=== PATIENT | female | born 1960 | race Caucasian/White ===

== ENCOUNTER 2018-09-28 14:40 | Inpatient (IN) | payer MEDICAID ==
[~2018-09-28] VITALS: Ht 162.6 cm; Wt 80.0 kg
[2018-09-28 14:49] VITALS: Ht 162.6 cm; Wt 80.0 kg
--- NOTE | 2018-09-28 16:16 | NUR ---
MSE COMPLETED BY DR CASTANO
--- NOTE | 2018-09-28 16:20 | NUR ---
PT HERE FOR C/O RUQ ABD PAIN RADIATING TO R SIDE BACK AND CHEST WALL PAIN FOR 1 DAY. PT STS THIS MORNING SHE WOKE UP WITH DROOPING TO R SIDE OF FACE. PT STS SHE STILL HAS SLIGHT DROOPING AT THIS TIME ALTHOUGH WITH SMILE AND RAISING EYEBROWS HER FACE APPEARS SYMMETRIC.
--- NOTE | 2018-09-28 16:42 | NUR ---
LAB AT BEDSIDE
--- NOTE | 2018-09-28 16:44 | NUR ---
PT REPORTS FEELING DIZZY. REMAINS ON FULL MONITORS. NSR AT 64. PT INFORMED DIZZINESS IS A SIDE EFFECT OF NITRO TAB. HELD 3RD TABLET AT THIS TIME. STS 0/10 CP AT THIS TIME
[2018-09-28 17:04] LABS: BASOPHIL % 0.6 % (0-2); PLATELET COUNT 235 x10^3mcL (130-400); RED CELL DISTRIBUTION WIDTH 13.6 % (11.5-14.5)
[2018-09-28 17:05] LABS: CALCIUM 8.5 mg/dL (8.5-10.1); CARBON DIOXIDE 27.3 mmol/L (21-32); CHLORIDE SERUM 105 mmol/L (98-107); CREATININE SERUM 0.7 mg/dL (0.6-1.0); GFR1 > 60 mL/min; GLUCOSE SERUM 76 mg/dL (74-106); POTASSIUM SERUM 3.5 mmol/L (3.5-5.1); SODIUM SERUM 142 mmol/L (136-145)
[2018-09-28 17:11] LABS: UA SPECIFIC GRAVITY 1.015 (1.005-1.035); microscopic required? YES; urine erythrocyte TRACE (NEGATIVE)
[2018-09-28 17:13] LABS: ALBUMIN 3.7 g/dL (3.4-5.0); ALKALINE PHOSPHATASE 65 U/L (46-116); ALT/SGPT 24 U/L (14-59); AST/SGOT 16 U/L (15-37); BILIRUBIN TOTAL 0.3 mg/dL (0.20-1.00); CHOLESTEROL 170 mg/dL (<200); HDL CHOLESTEROL 49 mg/dL (40-60); LIPASE 168 IU/L (73-393); TOTAL PROTEIN, SERUM 7.3 g/dL (6.4-8.2)
[2018-09-28 17:27] LABS: AMPHETAMINE QUAL UR NONE DETECTED (See below)
--- NOTE | 2018-09-28 18:12 | NUR ---
PT REQUESTING PAIN FOR R SIDE BACK PAIN
--- NOTE | 2018-09-28 18:24 | NUR ---
DR CASTANO AWARE PT REQUESTING PAIN MED. TORADOL 15MG IVP VERBAL ORDER GIVEN
--- NOTE | 2018-09-28 18:36 | NUR ---
DR CASTANO SPOKE WITH PT REGARDING TEST RESULTS AND POC
--- NOTE | 2018-09-28 19:20 | NUR ---
REPORT GIVEN TO LULA
--- NOTE | 2018-09-28 19:36 | NUR ---
ABOVE NOTE DONE BY MT PRIDE.
[2018-09-28 20:04] LABS: MAGNESIUM 2.4 mg/dL (1.8-2.4); PHOSPHOROUS 3.2 mg/dL (2.5-4.9)
[2018-09-28 20:12] VITALS: BP 111/66
--- NOTE | 2018-09-28 20:24 | NUR ---
RECEIVED PT FROM ER, PT ADMIT FOR CHEST PAIN, PT IS A/O X4, VERBAL RESPONSIVE, ABLE TO TELL WHAT SHE NEEDS. LUNG SOUND CLEAR BILATERAL, NO COUGH, NO SOB, PT IS ON TELE 6, NSR, C/O CHEST PAIN AT MID, STAB PAIN AND RADIATE TO BACK, 8/10, BOWEL SOUND PRESENT ALL 4 QUADRANTS, NO DISTENTION, NO TENDER. PEDAL PULSE PRESENT BOTH FEET, NO EDEMA, IV AT RIGHT HAND, NO LEAKING, NO INFILTRAITON. ALL ADLS ASSIST, ALL NEED MET, CALL LIGHT IN REACH, WILL CONTINUE TO MONITOR.
--- NOTE | 2018-09-29 05:06 | NUR ---
DR. MAJOR MADE AWARE VIA [facility] OF [facility]: TRACE LEUKS AND FEW BACTERIA
[2018-09-29 05:28] VITALS: BP 100/55
--- NOTE | 2018-09-29 05:30 | NUR ---
PATIENT ALLERGY TO CODEINE, WAS GIVEN NORCO 7.5MG/325MG PO NO ADVERSE REATION NOTED. DR HURTADO WAS PAGED REGARDING THIS MATTER BUT NO RETURN CALL.
--- NOTE | 2018-09-29 05:32 | NUR ---
[facility] SHOWS TRACED LEUKCYTE EASTERASE WITH FEW BACTERIA, DR HURTADO WAS PAGED AWAITNG FOR RETURN CALL.
--- NOTE | 2018-09-29 06:22 | NUR ---
DR ANDREWS DID NOT RETURN THE CALL. PAGE [facility] X2 , WAITING FOR NEW ORDERS,
[2018-09-29 09:04] VITALS: BP 92/73
[2018-09-29 13:16] VITALS: BP 110/69
[2018-09-29 13:24] VITALS: BP 102/68
--- NOTE | 2018-09-29 15:03 | NUR ---
Discount pharmacy card and list to low cost medical clinics given to patient by Ngozi Walker.
[2018-09-29 17:01] VITALS: BP 125/71
--- NOTE | 2018-09-29 17:30 | NUR ---
DR HANNAH WAS AT BEDSIDE. NEW ORDERS RECEIVED. PATIENT TRANSFERRED TO M/S, TELE BOX RETURNED TO TECH STATION. KPAD ORDERED FOR BACK PROVIDED. [place] ALSO REQUESTED FOR BACK PAIN RADIATING TO RT SIDE CHEST, GIVEN. RECEIVED NEW ORDER FOR [facility] TO START TONIGHT. NO OTHER SIGNFICANT CHANGE IN CONDITION. WILL CONT TO MONITOR AND ENDORSE TO NOC NURSE.
--- NOTE | 2018-09-29 19:33 | NUR ---
SHIFT REASSESSMENT DONE.PATIENT ALERT AND ORIENTED.IN BED RESTING,BREATHING EASY.AMBULATORY RESTROOM,MEDSURG PATIENT NOW.HEPLOCK R HAND,ROCEPHITrav ATB ORDER TODAY.SKIN INTACT.HAS HEATING PAD/BACK PAIN.MOTRIN NEW ORDER.HAD NORCO EARLIER.CALL LIGHT IN REACH.
[2018-09-29 21:05] VITALS: BP 133/65
--- NOTE | 2018-09-29 21:10 | NUR ---
PATIENT ATB INITIATED WTH NO INCIDENT.HEPLOCK INTACT/SECURED.CALL LIGHT IN [facility],GIVEN TYLENOL EARLIER,DID NOT WANT NORCO AT THIS TIME.
--- NOTE | 2018-09-30 01:34 | NUR ---
PATIENT SLEEPING AFTER NORCO GIVEN,SWALLOWS WELL.WILL SENT [facility] CULTURE.
--- NOTE | 2018-09-30 01:40 | NUR ---
PATIENT NEED A [facility] CULTURE.PATIENT MADE AWARE.
--- NOTE | 2018-09-30 03:43 | NUR ---
URINE CULTURE SENT TO THE LAB.PATIENT DO NOT WANT TO USE K PAD ON HER BACK ANYMORE.
--- NOTE | 2018-09-30 06:08 | NUR ---
PATIENT DOING HER AM CARE.NO INCIDENT.PATIENT STILL DO NOT WANT HEATING PAD/BACK.SAYS SHE USED IT ALREADY ALL DAY YESTERDAY.[facility]AR REQUESTED AND GIVEN,AM LAB WORKS DONE.CALL LIGHT IN [place].WILL ENDORSE TO NEXT SHIFT.
[2018-09-30 07:10] LABS: BASOPHIL % 0.7 % (0-2); PLATELET COUNT 228 x10^3mcL (130-400); RED CELL DISTRIBUTION WIDTH 13.8 % (11.5-14.5)
--- NOTE | 2018-09-30 07:20 | NUR ---
RECEIVED PT IN NO ACUTE DISTRESS. AAOX4. RESP EVEN AND UNLABORED ON RA. NO C/O CP OR PRESSURE. REPORTS BACK PAIN /, TOLERABLE. REFUSED K-PAD AT THIS TIME. IV TO R HAND, NO REDNESS OR SWELLING TO IV SITE. BED IN LOW POSITION, CALL LIGHT WITHIN REACH. WILL CONTINUE TO MONITOR.
[2018-09-30 07:34] LABS: CALCIUM 8.4 mg/dL (8.5-10.1); CARBON DIOXIDE 28.5 mmol/L (21-32); CHLORIDE SERUM 104 mmol/L (98-107); CREATININE SERUM 0.8 mg/dL (0.6-1.0); GFR1 > 60 mL/min; GLUCOSE SERUM 86 mg/dL (74-106); MAGNESIUM 2.3 mg/dL (1.8-2.4); PHOSPHOROUS 5.1 mg/dL (2.5-4.9); POTASSIUM SERUM 3.6 mmol/L (3.5-5.1); SODIUM SERUM 142 mmol/L (136-145)
[2018-09-30 08:06] VITALS: BP 116/75
--- NOTE | 2018-09-30 12:02 | NUR ---
PT IN NO ACUTE DISTRESS. SLEEPING BUT EASILY AROUSABLE. BREATHING EVEN AND UNLABORED ON RA. NO PAIN NOTED. HOB ELEVATED. IV TO R HAND, NO REDNESS OR SWELLING. CALL LIGHT WITHIN REACH. WILL CONTINUE TO MONITOR.
[2018-09-30 13:46] VITALS: BP 116/75
--- NOTE | 2018-09-30 15:06 | NUR ---
PT DISCHARGED TO HOME IN NO ACUTE DISTRESS. AWAKE, ALERT, AND ORIENTED. VSS. AMBULATORY. DISCHARGE EDUCATION PROVIDED, PT VERBALIZED UNDERSTANDING. INSTRUCTED PT TO FOLLOW UP WITH PCP. IV DC'D WITH CATHETER INTACT. BELONGINGS WITH PT. MAURICIO NEVILLE ACCOMPANIED PT TO LOBBY.
== END 2018-09-30 15:07 | disposition home or self-care (01) | DRG 203 ==
LOC: ED 14:40 → DU 18:53 → MU 09-29 18:06
PROVIDERS: Emergency Medicine; ADMIT General Practice
DX: M94.0 Chondrocostal junction syndrome [Tietze] (principal); R73.03 Prediabetes; Z68.30 Body mass index [BMI] 30.0-30.9, adult; Z87.891 Personal history of nicotine dependence; Z92.3 Personal history of irradiation; Z92.21 Personal history of antineoplastic chemotherapy; Z85.3 Personal history of malignant neoplasm of breast; Z90.12 Acquired absence of left breast and nipple
CPT/HCPCS: 83880; G0378; J0696; J1885; J2405; J7030; J7050

== ENCOUNTER 2019-11-13 10:36 | Emergency (ER) | payer MEDICAID ==
[~2019-11-13] VITALS: Ht 162.6 cm; Wt 74.8 kg
[2019-11-13 11:10] VITALS: Ht 162.6 cm; Wt 74.8 kg
[2019-11-13 11:39] LABS: BASOPHIL % 0.4 % (0-2); PLATELET COUNT 214 x10^3mcL (130-400); RED CELL DISTRIBUTION WIDTH 13.3 % (11.5-14.5)
[2019-11-13 11:50] LABS: CALCIUM 8.9 mg/dL (8.5-10.1); CARBON DIOXIDE 28.6 mmol/L (21-32); CHLORIDE SERUM 103 mmol/L (98-107); CREATININE SERUM 0.6 mg/dL (0.6-1.0); GFR1 > 60 mL/min; GLUCOSE SERUM 92 mg/dL (74-106); POTASSIUM SERUM 3.8 mmol/L (3.5-5.1); SODIUM SERUM 138 mmol/L (136-145)
[2019-11-13 11:55] LABS: ALBUMIN 3.8 g/dL (3.4-5.0); ALKALINE PHOSPHATASE 79 U/L (46-116); ALT/SGPT 17 U/L (14-59); AST/SGOT 23 U/L (15-37); BILIRUBIN TOTAL 0.5 mg/dL (0.20-1.00); TOTAL PROTEIN, SERUM 7.6 g/dL (6.4-8.2)
[2019-11-13 16:58] VITALS: BP 133/78
== END 2019-11-13 16:58 | disposition home or self-care (01) ==
LOC: ED 10:36
PROVIDERS: Emergency Medicine
DX: R07.89 Other chest pain (principal); R91.1 Solitary pulmonary nodule; R06.02 Shortness of breath; Z98.890 Other specified postprocedural states; Z85.3 Personal history of malignant neoplasm of breast; Z88.5 Allergy status to narcotic agent
CPT/HCPCS: J1885; Q0092; Q9967